=== PATIENT | male | born 1955 | race Caucasian/White ===

== ENCOUNTER → 2016-11-04 | Outpatient (CLI) | payer SELFPAY ==
[~2016-11-04] MED LIST: ASCO-262 PO; ASCO500S2 PO; ASCO500T7 PO; OMEP20CA12 PO; OMEP20CA6 PO; OMEP40CA36 PO; RANI-514 PO; SUCR1ORA5 PO
== END ==
LOC: PREOP 05:41
PROVIDERS: ATTEND Surgery
DX: Z01.818 Encounter for other preprocedural examination (principal); K21.9 Gastro-esophageal reflux disease without esophagitis; R19.5 Other fecal abnormalities

== ENCOUNTER → 2018-08-25 | Outpatient (CLI) | payer SELFPAY ==
--- NOTE | 2018-08-25 12:38 | Diagnostic Imaging Report ---
INDICATION: Left ankle injury. AP, oblique, and lateral views of left ankle are obtained. No fracture or acute bony abnormality seen. IMPRESSION: Negative left ankle. Dictated by: Dictated on workstation # [id number]
== END ==
LOC: RAD FS 12:04
PROVIDERS: ATTEND Physician Assistant
DX: S99.912A Unspecified injury of left ankle, initial encounter (principal)
CPT/HCPCS: 73610